=== PATIENT | male | born 1975 | race African-American/Black ===

== ENCOUNTER 2023-03-11 08:06 | Observation (INO) | payer MEDICAID, OTHER ==
[2023-03-11 09:42] VITALS: BMI 32.1
[2023-03-11] MEDS ORDERED: HumaLOG 300 UNITS/3 ML VIAL SC PRN (11:07)
[2023-03-11] MEDS ORDERED: Dextrose 5% in Water 1,000 ML IV PRN (11:07)
[2023-03-11] MEDS ORDERED: Dextrose 50% Abboject 50 ML SYRINGE SLOW IVP PRN (11:07)
[2023-03-11] MEDS ORDERED: Glucagon 1 MG/ML KIT IM PRN (11:07)
[2023-03-11] MEDS ORDERED: Ondansetron ODT 4 MG TAB PO PRN (11:08)
[2023-03-11] MEDS ORDERED: Ondansetron PF 4 MG/2 ML Vial IVP PRN (11:08)
[2023-03-11] MEDS ORDERED: Nitroglycerin 0.4 MG TAB (25 Tab Bottle) SL PRN (11:10)
[2023-03-11] MEDS ORDERED: HYDROcodone/Acetaminophen 5/325 mg Tablet PO PRN (11:11)
[2023-03-11] MEDS ORDERED: Acetaminophen 325 MG TAB PO PRN (11:12)
[2023-03-11] MEDS ORDERED: Morphine 2 MG/ML VIAL SLOW IVP PRN (11:45)
[2023-03-11] MEDS: HumuLIN 70/30 100 Unit/ ml 10 ml Vial SC SCH (17:00)
[2023-03-11] MEDS: Famotidine 20 MG TAB PO SCH (20:43)
[2023-03-11] MEDS: Atorvastatin Calcium 40 MG TAB PO SCH (20:43)
[2023-03-11] MEDS: levETIRAcetam 500 MG TAB PO SCH (20:44)
[2023-03-11] MEDS ORDERED: HumuLIN 70/30 (300 UNITS/3 ML VIAL) SC SCH (21:00)
[2023-03-12] MEDS: levETIRAcetam 500 MG TAB PO SCH ×2 (08:50→20:10)
[2023-03-12] MEDS: Famotidine 20 MG TAB PO SCH ×2 (08:50→20:11)
[2023-03-12] MEDS: HumuLIN 70/30 100 Unit/ ml 10 ml Vial SC SCH ×2 (08:50→17:28)
[2023-03-12] MEDS ORDERED: Clopidogrel Bisulfate 75 MG TAB PO SCH (09:00)
[2023-03-12] MEDS ORDERED: Lisinopril 20 MG TAB PO SCH (09:00)
[2023-03-12] MEDS ORDERED: Aspirin 81 mg Enteric Coated Tablet PO SCH (09:00)
[2023-03-12] MEDS ORDERED: Hydrochlorothiazide 25 MG TAB PO SCH (09:00)
[2023-03-12] MEDS ORDERED: Amlodipine 5 MG TAB PO SCH (09:00)
[2023-03-12] MEDS: Atorvastatin Calcium 40 MG TAB PO SCH (20:10)
[2023-03-12 20:36] VITALS: BP 121/75; TEMP 98
== END 2023-03-13 | disposition home or self-care (01) ==
LOC: CSHTELE 08:52
PROVIDERS: ADMIT Internal Medicine; ATTEND Internal Medicine
DX: R07.9 Chest pain, unspecified (principal); I10 Essential (primary) hypertension; E11.9 Type 2 diabetes mellitus without complications; E78.5 Hyperlipidemia, unspecified; G40.909 Epilepsy, unspecified, not intractable, without status epilepticus; Z86.73 Personal history of transient ischemic attack (TIA), and cerebral infarction without residual deficits; Z79.02 Long term (current) use of antithrombotics/antiplatelets; Z87.891 Personal history of nicotine dependence; Z79.82 Long term (current) use of aspirin; Z79.899 Other long term (current) drug therapy; Z79.4 Long term (current) use of insulin
CPT/HCPCS: 36416; 93306; G0378; J1815